=== PATIENT | male | born 1955 | race Caucasian/White ===

== ENCOUNTER → 2019-11-25 | Outpatient (CLI) | payer MEDICARE ==
--- NOTE | 2019-11-25 11:27 | Diagnostic Imaging Report ---
PROCEDURE: CT abdomen and pelvis without contrast. TECHNIQUE: Multiple contiguous axial images were obtained through the abdomen and pelvis without the use of intravenous contrast. Auto Exposure Controls were utilized during the CT exam to meet ALARA standards for radiation dose reduction. INDICATION: Prostate cancer. COMPARISON: None available. FINDINGS: The visualized lung bases are clear. The unenhanced liver, spleen, adrenal glands, and pancreas are unremarkable. The gallbladder is unremarkable. The kidneys and bilateral ureters are unremarkable. No aneurysmal dilatation of the abdominal aorta. Mild scattered vascular calcifications. Small fat-containing bilateral inguinal hernias, left greater than right. The prostate gland is significantly enlarged measuring 7.2 x 4.8 cm. The appendix is unremarkable. No bowel obstruction or pneumatosis. No pathologically enlarged lymph nodes within the abdomen or pelvis. Grade 1 anterolisthesis of L3 on L4 with associated degenerative changes. 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 Additional scattered osseous degenerative changes. [place] left curvature of the lumbar spine. Sclerotic lesion noted within the right pubic tubercle. IMPRESSION: Severely enlarged prostate gland. Sclerotic lesion within the right pubic tubercle. This is nonspecific. This could simply relate to a bone island, though given provided history, osseous metastatic disease is not totally excluded. Comparison to prior imaging would be beneficial. Alternatively, nuclear medicine bone scan would help to further evaluate for osseous metastatic disease. No additional evidence of metastatic disease. Degenerative changes and grade 1 anterolisthesis of L3 on L4 resulting in severe central canal stenosis. Additional findings as above. Dictated by: Dictated on workstation # [id number]
--- NOTE | 2019-11-25 13:36 | Diagnostic Imaging Report ---
INDICATION: Prostate CA. 26 mCi tech 99 MDP was given IV. 3 hour delayed whole body imaging. FINDINGS: There is good uptake throughout the skeletal system. There is a focal are of increased activity in the right mandible. Mild uptake noted within the left AC joint. Remainder of the skeletal system shows normal uptake. IMPRESSION: 1. No changes are seen that would suggest metastatic disease. 2. Focal uptake in the right mandible likely secondary to dental caries. Clinical correlation. 2. Activity in the left AC joint consistent with degenerative changes. Dictated by: Dictated on workstation # [id number]
== END ==
LOC: CARD 09:51
PROVIDERS: ATTEND Urology
DX: C61 Malignant neoplasm of prostate (principal); M43.16 Spondylolisthesis, lumbar region; M48.061 Spinal stenosis, lumbar region without neurogenic claudication; M89.9 Disorder of bone, unspecified; I70.0 Atherosclerosis of aorta; K40.20 Bilateral inguinal hernia, without obstruction or gangrene, not specified as recurrent
CPT/HCPCS: 74176; 78306

== ENCOUNTER 2021-05-30 09:37 | Outpatient (RCR) | payer MEDICARE | END 2021-06-23 | disposition home or self-care (01) | LOC: ONC 09:37 | PROVIDERS: ATTEND Radiology Radiation Oncology | DX: Z51.0 Encounter for antineoplastic radiation therapy (principal); C61 Malignant neoplasm of prostate; E78.00 Pure hypercholesterolemia, unspecified; I10 Essential (primary) hypertension | CPT/HCPCS: 77300; 77301; 77334; 77336; 77338; 77385; 99204 ==